=== PATIENT | female | born 1945 | race Caucasian/White ===

== ENCOUNTER 2017-11-19 15:03 | Inpatient (IN) ==
[2017-11-19 16:07] LABS: Basophils % 0.3 % (0.0-0.8); Eosinophils # 0.1 10*3/uL (0.0-0.87); Eosinophils % 1.6 % (0.00-10.9); Hematocrit 45.8 VOL% (35.7-47.0); Hemoglobin 15.7 GM/DL (12.0-16.0); Immature Granulocytes % 0.4 %; Immature Granulocytes Absolute 0.03 #; Lymphocytes # 3.3 10*3/uL (1.4-4.0); Lymphocytes % 41.6 % (21.3-54.2); Mean Corpuscular HGB Conc 34.3 GM/DL (32-36); Mean Corpuscular Hemoglobin 31 PG (27-34); Mean Corpuscular Volume 89.1 FL (87-102); Mean Platelet Volume 10.6 FL (9.6-12.0); Monocytes # 0.8 10*3/uL (0.11-0.8); Monocytes % 10.4 % (1.7-12.7); Neutrophils # 3.7 10*3/uL (1.4-7.4); Neutrophils % 45.7 % (38.7-73.9); Platelet Count 295 T/CUMM (130-400); Red Blood Count 5.14 MC/CUMM (3.8-5.5); Red Cell Distribution Width 12.8 % (9.3-17.3)
[2017-11-19 16:54] LABS: Albumin 4.1 G/DL (3.4-5.0); Bilirubin,Total 1.3 MG/DL (0.2-1.0); CKMB % 1.1 %; Free T4 (Free Thyroxine) 1.01 NG/DL (0.76-1.46); Magnesium 2.8 MG/DL (1.8-2.4); Osmolality,Calculated 300.8 MOS/KG (273-304); Potassium 4.7 MMOL/L (3.5-5.1); Thyroid Stimulating Hormone 14.9 uIU/ml (0.358-3.74); Total Protein 7.1 G/DL (6.4-8.3)
[2017-11-19 16:56] LABS: Troponin I Only 0.05 NG/ML (0.00-0.045)
[2017-11-19] MEDS ORDERED: SODIUM CHLORIDE 0.9% 1,000 ML IV STA ×2 (17:31→18:49)
[2017-11-19 18:37] LABS: Apearance,Urine CLOUDY (Clear); Bacteria,Urine Moderate /HPF (Few); Bilirubin,Urine Negative (Negative); Blood, Urine Moderate mg/dL (Negative); Glucose,Urine (UA) 50 mg/dL (Negative); Hyaline Casts,Urine 36 /LPF (0-3); Ketones,Urine Negative (Negative); Mucus,Urine Occasional /LPF (Occasional); Nitrite,Urine Negative (Negative); Protein,Urine 30 MG/DL; RBC,Urine 2 /HPF (0-4); Squamous Epithelial Cell,Urine Occasional /HPF (0-10); Urine Color Dark yellow (Yellow); Urine Specific Gravity 1.018 (1.001-1.035)
[2017-11-19] MEDS ORDERED: ONDANSETRON 4 MG/2 ML VIAL IV PRN (18:41)
[2017-11-19] MEDS ORDERED: ACETAMINOPHEN 325 MG TABLET PO PRN (18:41)
[2017-11-19] MEDS ORDERED: GLUCAGON 1 MG VIAL IM PRN (18:44)
[2017-11-19] MEDS ORDERED: DEXTROSE 50% 25 GM/50 ML VIAL IV PRN (18:44)
[2017-11-19] MEDS ORDERED: SODIUM BICARBONATE 50 MEQ/50 ML SYRINGE IV ONE (18:45)
[2017-11-19 18:46] LABS: Barbiturates Screen,Urine Negative (Negative); Benzodiazepines Screen,Urine Negative (Negative); Cannabinoid Screen,Urine Negative (Negative); Opiate Screen,Urine Negative (Negative); Phencyclidine Screen,Urine Negative (Negative)
[2017-11-19] MEDS ORDERED: SODIUM BICARBONATE 50 MEQ/50 ML VIAL IV STA (18:49)
[2017-11-19] MEDS ORDERED: LACTULOSE 20 GM/30 ML UDCUP PO PRN (20:23)
[2017-11-19] MEDS: SODIUM CHLORIDE 0.9% 1,000 ML IV SCH (21:22)
[2017-11-19] MEDS: METOPROLOL TARTRATE 25 MG TABLET PO SCH (22:01)
[2017-11-19] MEDS: cefTRIAXone 1,000 MG in SYRINGE 1 EACH IV SCH (22:02)
[2017-11-19] MEDS: ENOXAPARIN 30 MG/0.3 ML SYRINGE SUBCUT SCH (22:02)
[2017-11-19] MEDS: OSELTAMIVIR 75 MG CAPSULE PO SCH (22:02)
[2017-11-19] MEDS: DESITIN 4OZ/NYSTATIN 15 GRAM MIXTURE PASTE TOP SCH (23:30)
[2017-11-19 23:35] LABS: CKMB % 1.2 %; Troponin I Only 0.044 NG/ML (0.00-0.045)
[2017-11-20] MEDS: SODIUM CHLORIDE 0.9% 1,000 ML IV SCH ×5 (01:12→23:19)
[2017-11-20] MEDS: INSULIN REGULAR 100 UNIT/ML SUBCUT SCH ×4 (01:15→17:57)
[2017-11-20 07:37] LABS: Bilirubin,Total 0.7 MG/DL (0.2-1.0); Calcium 7.8 MG/DL (8.5-10.1); Osmolality,Calculated 297.1 MOS/KG (273-304); Potassium 3.6 MMOL/L (3.5-5.1); Total Protein 5.6 G/DL (6.4-8.3)
[2017-11-20 07:38] LABS: Bilirubin,Direct 0.23 MG/DL (0.0-0.20); Bilirubin,Indirect 0.5 MG/DL (0.0-1.0); Bilirubin,Total 0.7 MG/DL (0.2-1.0); Total Protein 5.5 G/DL (6.4-8.3)
[2017-11-20 07:41] LABS: Risk Ratio 8.22; VLDL CHOLESTEROL 56.4 MG/DL
[2017-11-20 07:52] LABS: CKMB % 0.7 %; Troponin I Only 0.043 NG/ML (0.00-0.045)
[2017-11-20 09:46] LABS: Basophils % 0.1 % (0.0-0.8); Hematocrit 43.4 VOL% (35.7-47.0); Hemoglobin 14.9 GM/DL (12.0-16.0); Immature Granulocytes % 0.4 %; Immature Granulocytes Absolute 0.03 #; Lymphocytes # 1.7 10*3/uL (1.4-4.0); Lymphocytes % 25.9 % (21.3-54.2); Mean Corpuscular HGB Conc 34.3 GM/DL (32-36); Mean Corpuscular Hemoglobin 32 PG (27-34); Mean Corpuscular Volume 92.1 FL (87-102); Mean Platelet Volume 13.2 FL (9.6-12.0); Monocytes # 0.5 10*3/uL (0.11-0.8); Monocytes % 7.7 % (1.7-12.7); Neutrophils # 4.4 10*3/uL (1.4-7.4); Neutrophils % 65.9 % (38.7-73.9); Red Blood Count 4.71 MC/CUMM (3.8-5.5); Red Cell Distribution Width 13.7 % (9.3-17.3); White Blood Count 6.7 T/CUMM (4-12)
[2017-11-20] MEDS: LEVOTHYROXINE 25 MCG TABLET PO SCH (10:03)
[2017-11-20] MEDS: DESITIN 4OZ/NYSTATIN 15 GRAM MIXTURE PASTE TOP SCH ×2 (10:03→23:07)
[2017-11-20] MEDS: OSELTAMIVIR 75 MG CAPSULE PO SCH ×2 (10:03→23:05)
[2017-11-20] MEDS: ASPIRIN 325 MG TABLET PO SCH (10:03)
[2017-11-20] MEDS: METOPROLOL TARTRATE 25 MG TABLET PO SCH ×2 (10:03→23:06)
[2017-11-20 10:12] LABS: Platelet Count 80 T/CUMM (130-400)
[2017-11-20] MEDS ORDERED: TUBERCULIN SKIN TEST 0.1 ML SYRINGE INTRADERM ONE (15:02)
[2017-11-20] MEDS: ENOXAPARIN 30 MG/0.3 ML SYRINGE SUBCUT SCH (23:06)
[2017-11-20] MEDS: cefTRIAXone 1,000 MG in SYRINGE 1 EACH IV SCH (23:17)
[2017-11-21] MEDS: INSULIN REGULAR 100 UNIT/ML SUBCUT SCH ×4 (01:23→19:04)
[2017-11-21] MEDS: LEVOTHYROXINE 25 MCG TABLET PO SCH (06:40)
[2017-11-21] MEDS: ASPIRIN 325 MG TABLET PO SCH (09:20)
[2017-11-21] MEDS: OSELTAMIVIR 75 MG CAPSULE PO SCH ×2 (09:20→22:03)
[2017-11-21] MEDS: DESITIN 4OZ/NYSTATIN 15 GRAM MIXTURE PASTE TOP SCH ×2 (09:20→22:05)
[2017-11-21] MEDS: METOPROLOL TARTRATE 25 MG TABLET PO SCH ×2 (09:24→22:03)
[2017-11-21] MEDS ORDERED: FLUCONAZOLE 200 MG TABLET PO ONE (12:28)
[2017-11-21] MEDS: SODIUM CHLORIDE 0.9% 1,000 ML IV SCH ×2 (19:46→19:47)
[2017-11-21] MEDS: ENOXAPARIN 30 MG/0.3 ML SYRINGE SUBCUT SCH (22:03)
[2017-11-21] MEDS: cefTRIAXone 1,000 MG in SYRINGE 1 EACH IV SCH (22:04)
[2017-11-22] MEDS: INSULIN REGULAR 100 UNIT/ML SUBCUT SCH ×4 (01:59→23:52)
[2017-11-22] MEDS: SODIUM CHLORIDE 0.9% 1,000 ML IV SCH (05:42)
[2017-11-22 05:59] LABS: Basophils % 0.4 % (0.0-0.8); Eosinophils % 0.8 % (0.00-10.9); Hematocrit 40.9 VOL% (35.7-47.0); Hemoglobin 13.4 GM/DL (12.0-16.0); Immature Granulocytes % 0.6 %; Immature Granulocytes Absolute 0.03 #; Lymphocytes # 2.1 10*3/uL (1.4-4.0); Lymphocytes % 39.6 % (21.3-54.2); Mean Corpuscular HGB Conc 32.8 GM/DL (32-36); Mean Corpuscular Hemoglobin 31 PG (27-34); Mean Corpuscular Volume 94.7 FL (87-102); Mean Platelet Volume 13.8 FL (9.6-12.0); Monocytes # 0.3 10*3/uL (0.11-0.8); Monocytes % 5.9 % (1.7-12.7); Neutrophils # 2.8 10*3/uL (1.4-7.4); Neutrophils % 52.7 % (38.7-73.9); Red Blood Count 4.32 MC/CUMM (3.8-5.5); Red Cell Distribution Width 13.3 % (9.3-17.3); White Blood Count 5.3 T/CUMM (4-12)
[2017-11-22 06:06] LABS: Platelet Count 86 T/CUMM (130-400)
[2017-11-22] MEDS: LEVOTHYROXINE 25 MCG TABLET PO SCH (06:18)
[2017-11-22 06:21] LABS: Hypochromasia 1+; Ovalocytes Slight
[2017-11-22 06:22] LABS: Giant Platelets Few; Microcytosis Slight; Platelet Estimate Decreased
[2017-11-22 06:38] LABS: Albumin 2.7 G/DL (3.4-5.0); Bilirubin,Total 0.7 MG/DL (0.2-1.0); Calcium 7.5 MG/DL (8.5-10.1); Osmolality,Calculated 286.1 MOS/KG (273-304); Potassium 3.4 MMOL/L (3.5-5.1); Total Protein 5.2 G/DL (6.4-8.3)
[2017-11-22] MEDS: ASPIRIN 325 MG TABLET PO SCH (09:58)
[2017-11-22] MEDS: FLUCONAZOLE 200 MG TABLET PO SCH (09:58)
[2017-11-22] MEDS: OSELTAMIVIR 75 MG CAPSULE PO SCH ×2 (09:58→23:52)
[2017-11-22] MEDS: DESITIN 4OZ/NYSTATIN 15 GRAM MIXTURE PASTE TOP SCH ×2 (09:59→23:53)
[2017-11-22] MEDS: METOPROLOL TARTRATE 25 MG TABLET PO SCH ×2 (10:10→23:52)
[2017-11-22] MEDS: ENOXAPARIN 30 MG/0.3 ML SYRINGE SUBCUT SCH (23:52)
[2017-11-23] MEDS: SODIUM CHLORIDE 0.9% 1,000 ML IV SCH ×4 (00:01→20:37)
[2017-11-23] MEDS: INSULIN REGULAR 100 UNIT/ML SUBCUT SCH ×4 (00:34→17:09)
[2017-11-23] MEDS: cefTRIAXone 1,000 MG in SYRINGE 1 EACH IV SCH (00:58)
[2017-11-23] MEDS ORDERED: ZALEPLON 5 MG CAPSULE PO ONE (01:00)
[2017-11-23] MEDS: LEVOTHYROXINE 25 MCG TABLET PO SCH (06:29)
[2017-11-23] MEDS: ASPIRIN 325 MG TABLET PO SCH (09:31)
[2017-11-23] MEDS: METOPROLOL TARTRATE 25 MG TABLET PO SCH ×2 (09:32→20:37)
[2017-11-23] MEDS: OSELTAMIVIR 75 MG CAPSULE PO SCH ×2 (09:32→20:36)
[2017-11-23] MEDS: DESITIN 4OZ/NYSTATIN 15 GRAM MIXTURE PASTE TOP SCH ×2 (09:32→20:37)
[2017-11-23] MEDS: FLUCONAZOLE 200 MG TABLET PO SCH (09:32)
[2017-11-23] MEDS ORDERED: hydrALAZINE 20 MG/1 ML VIAL IV PRN (14:59)
[2017-11-23] MEDS: ALBUTEROL/IPRATROPIUM 3 ML NEB RESP TX SCH (19:50)
[2017-11-23] MEDS: ENOXAPARIN 30 MG/0.3 ML SYRINGE SUBCUT SCH (20:36)
[2017-11-24] MEDS: cefTRIAXone 1,000 MG in SYRINGE 1 EACH IV SCH (00:16)
[2017-11-24] MEDS: INSULIN REGULAR 100 UNIT/ML SUBCUT SCH ×2 (00:23→06:03)
[2017-11-24] MEDS: ALBUTEROL/IPRATROPIUM 3 ML NEB RESP TX SCH ×4 (00:31→11:32)
[2017-11-24] MEDS: LEVOTHYROXINE 25 MCG TABLET PO SCH (06:03)
[2017-11-24 06:25] LABS: Basophils % 0.4 % (0.0-0.8); Eosinophils # 0.1 10*3/uL (0.0-0.87); Hematocrit 40.5 VOL% (35.7-47.0); Hemoglobin 14.2 GM/DL (12.0-16.0); Immature Granulocytes % 1.6 %; Immature Granulocytes Absolute 0.08 #; Lymphocytes # 1.3 10*3/uL (1.4-4.0); Lymphocytes % 25.4 % (21.3-54.2); Mean Corpuscular HGB Conc 35.1 GM/DL (32-36); Mean Corpuscular Hemoglobin 32 PG (27-34); Mean Platelet Volume 13.6 FL (9.6-12.0); Monocytes # 0.4 10*3/uL (0.11-0.8); Monocytes % 7.8 % (1.7-12.7); Neutrophils # 3.2 10*3/uL (1.4-7.4); Neutrophils % 63.8 % (38.7-73.9); Red Cell Distribution Width 13.2 % (9.3-17.3)
[2017-11-24 06:47] LABS: Platelet Count 146 T/CUMM (130-400)
[2017-11-24 07:03] LABS: Calcium 7.9 MG/DL (8.5-10.1); Potassium 2.8 MMOL/L (3.5-5.1)
[2017-11-24] MEDS: ASPIRIN 325 MG TABLET PO SCH (08:38)
[2017-11-24] MEDS: OSELTAMIVIR 75 MG CAPSULE PO SCH (08:38)
[2017-11-24] MEDS: METOPROLOL TARTRATE 25 MG TABLET PO SCH (08:38)
[2017-11-24] MEDS: POTASSIUM CHLORIDE 20 MEQ/15 ML UDCUP PO PRN ×4 (08:38→11:00)
[2017-11-24] MEDS: FLUCONAZOLE 200 MG TABLET PO SCH (08:38)
[2017-11-24] MEDS: DESITIN 4OZ/NYSTATIN 15 GRAM MIXTURE PASTE TOP SCH (08:39)
[2017-11-24] MEDS: SODIUM CHLORIDE 0.9% 1,000 ML IV SCH (09:46)
[2017-11-24 12:47] VITALS: BP 164/88
== END 2017-11-24 13:02 | DRG 683 ==
LOC: N.ED 15:03 → N.EDINP 18:56 → SUATTDRO 18:56 → N.5E 19:45
PROVIDERS: ADMIT Family Medicine; ATTEND Internal Medicine

== ENCOUNTER 2017-12-16 18:49 | Inpatient (IN) ==
[2017-12-16 20:02] LABS: Basophils % 0.7 % (0.0-0.8); Eosinophils # 0.2 10*3/uL (0.0-0.87); Eosinophils % 3.3 % (0.00-10.9); Hematocrit 38.8 VOL% (35.7-47.0); Hemoglobin 12.6 GM/DL (12.0-16.0); Immature Granulocytes % 0.5 %; Immature Granulocytes Absolute 0.03 #; Lymphocytes # 2.4 10*3/uL (1.4-4.0); Mean Corpuscular HGB Conc 32.5 GM/DL (32-36); Mean Corpuscular Hemoglobin 32 PG (27-34); Mean Corpuscular Volume 97.2 FL (87-102); Mean Platelet Volume 14.5 FL (9.6-12.0); Monocytes # 0.6 10*3/uL (0.11-0.8); Monocytes % 9.5 % (1.7-12.7); Neutrophils # 2.6 10*3/uL (1.4-7.4); Red Blood Count 3.99 MC/CUMM (3.8-5.5); Red Cell Distribution Width 14.4 % (9.3-17.3); White Blood Count 5.8 T/CUMM (4-12)
[2017-12-16 20:08] LABS: Platelet Count 67 T/CUMM (130-400)
[2017-12-16 20:09] LABS: Apearance,Urine CLEAR (Clear); Bilirubin,Urine Negative (Negative); Blood, Urine Negative (Negative); Glucose,Urine (UA) Negative (Negative); Hyaline Casts,Urine 1 /LPF (0-3); Ketones,Urine Negative (Negative); Mucus,Urine Few /LPF (Occasional); Nitrite,Urine Negative (Negative); Protein,Urine Negative; RBC,Urine 1 /HPF (0-4); Squamous Epithelial Cell,Urine Occasional /HPF (0-10); Urine Color Yellow (Yellow); Urine Specific Gravity 1.024 (1.001-1.035); WBC,Urine 1 /HPF (0-6)
[2017-12-16 20:25] LABS: Albumin 3.4 G/DL (3.4-5.0); Bilirubin,Total 0.6 MG/DL (0.2-1.0); Calcium 8.7 MG/DL (8.5-10.1); Potassium 3.9 MMOL/L (3.5-5.1)
[2017-12-16 21:16] LABS: Platelet Estimate Decreased
[2017-12-16] MEDS ORDERED: ONDANSETRON 4 MG/2 ML VIAL IV PRN (21:29)
[2017-12-16] MEDS ORDERED: ACETAMINOPHEN 325 MG TABLET PO PRN (21:29)
[2017-12-16] MEDS ORDERED: GLUCAGON 1 MG VIAL IM PRN (21:29)
[2017-12-16] MEDS ORDERED: DEXTROSE 50% 25 GM/50 ML VIAL IV PRN ×2 (21:29→21:57)
[2017-12-16] MEDS ORDERED: hydrALAZINE 20 MG/1 ML VIAL IV PRN (23:25)
[2017-12-16 23:36] LABS: Hemoglobin 12.4 GM/DL (12.0-16.0)
[2017-12-16] MEDS ORDERED: levETIRAcetam 500 MG/5 ML VIAL IV ONE (23:42)
[2017-12-17] MEDS ORDERED: HYDROCORTISONE 1% CREAM 28 GM TUBE TOP PRN (00:49)
[2017-12-17 01:21] LABS: Apearance,Urine CLEAR (Clear); Bilirubin,Urine Negative (Negative); Blood, Urine Moderate mg/dL (Negative); Glucose,Urine (UA) Negative (Negative); Ketones,Urine Negative (Negative); Mucus,Urine Occasional /LPF (Occasional); Nitrite,Urine Negative (Negative); Protein,Urine Negative; RBC,Urine 1 /HPF (0-4); Squamous Epithelial Cell,Urine Occasional /HPF (0-10); Urine Color Yellow (Yellow); Urine Specific Gravity 1.011 (1.001-1.035); Urine Urobilinogen < 2.0 EU/DL (0.2-1.0); WBC,Urine <1 /HPF (0-6)
[2017-12-17] MEDS: LEVOTHYROXINE 50 MCG TABLET PO SCH (05:34)
[2017-12-17 05:45] LABS: Basophils % 0.8 % (0.0-0.8); Eosinophils # 0.2 10*3/uL (0.0-0.87); Eosinophils % 4.4 % (0.00-10.9); Hematocrit 37.5 VOL% (35.7-47.0); Hemoglobin 12.3 GM/DL (12.0-16.0); Immature Granulocytes % 0.2 %; Immature Granulocytes Absolute 0.01 #; Lymphocytes # 2.3 10*3/uL (1.4-4.0); Lymphocytes % 47.8 % (21.3-54.2); Mean Corpuscular HGB Conc 32.8 GM/DL (32-36); Mean Corpuscular Hemoglobin 32 PG (27-34); Mean Corpuscular Volume 96.4 FL (87-102); Mean Platelet Volume 15.1 FL (9.6-12.0); Monocytes # 0.4 10*3/uL (0.11-0.8); Monocytes % 8.6 % (1.7-12.7); Neutrophils # 1.8 10*3/uL (1.4-7.4); Neutrophils % 38.2 % (38.7-73.9); Platelet Count 59 T/CUMM (130-400); Red Blood Count 3.89 MC/CUMM (3.8-5.5); Red Cell Distribution Width 14.4 % (9.3-17.3); White Blood Count 4.8 T/CUMM (4-12)
[2017-12-17 06:19] LABS: Band Neutrophils 1 % (0-10); Eosinophils 5 % (0-10); Giant Platelets Few; Hypochromasia 1+; Lymphocytes 48 % (20-55); Ovalocytes Slight; Platelet Estimate Decreased; Segmented Neutrophils 37 % (50-85); Total Cells Counted 100
[2017-12-17] MEDS: INSULIN LISPRO 100 UNIT/ML SUBCUT SCH ×4 (07:32→21:36)
[2017-12-17] MEDS ORDERED: MEMANTINE 5 MG TABLET PO SCH (09:00)
[2017-12-17] MEDS ORDERED: GABAPENTIN 100 MG CAPSULE PO SCH (09:00)
[2017-12-17] MEDS: PANTOPRAZOLE 40 MG VIAL IV SCH ×2 (09:09→21:36)
[2017-12-17] MEDS: SERTRALINE 50 MG TABLET PO SCH (09:10)
[2017-12-17] MEDS: KETOCONAZOLE 2% CREAM 30 GM TUBE TOP SCH ×2 (09:10→21:46)
[2017-12-17] MEDS: OLANZapine 2.5 MG TABLET PO SCH ×2 (09:10→21:36)
[2017-12-17] MEDS: cefTRIAXone 2,000 MG in SYRINGE 1 EACH IV SCH (12:08)
[2017-12-17] MEDS ORDERED: diphenhydrAMINE CAP 25 MG CAPSULE PO PRN (18:31)
[2017-12-17] MEDS ORDERED: HALOPERIDOL 5 MG/ML AMP IV PRN (18:34)
[2017-12-17] MEDS: MEMANTINE 10 MG TABLET PO SCH (21:36)
[2017-12-18 06:02] LABS: Basophils % 0.6 % (0.0-0.8); Eosinophils # 0.2 10*3/uL (0.0-0.87); Eosinophils % 3.8 % (0.00-10.9); Hemoglobin 13.1 GM/DL (12.0-16.0); Immature Granulocytes % 0.4 %; Immature Granulocytes Absolute 0.02 #; Lymphocytes # 1.6 10*3/uL (1.4-4.0); Lymphocytes % 32.6 % (21.3-54.2); Mean Corpuscular HGB Conc 34.5 GM/DL (32-36); Mean Corpuscular Hemoglobin 33 PG (27-34); Mean Corpuscular Volume 94.5 FL (87-102); Mean Platelet Volume 14.3 FL (9.6-12.0); Monocytes # 0.4 10*3/uL (0.11-0.8); Monocytes % 8.6 % (1.7-12.7); Neutrophils # 2.6 10*3/uL (1.4-7.4); Platelet Count 59 T/CUMM (130-400); Red Blood Count 4.02 MC/CUMM (3.8-5.5); Red Cell Distribution Width 14.6 % (9.3-17.3); White Blood Count 4.8 T/CUMM (4-12)
[2017-12-18 06:26] LABS: Hypochromasia 1+
[2017-12-18 06:27] LABS: Microcytosis Slight; Platelet Estimate Decreased
[2017-12-18] MEDS: LEVOTHYROXINE 50 MCG TABLET PO SCH (06:42)
[2017-12-18] MEDS: OLANZapine 2.5 MG TABLET PO SCH (09:48)
[2017-12-18] MEDS: SERTRALINE 50 MG TABLET PO SCH (09:48)
[2017-12-18] MEDS: MEMANTINE 10 MG TABLET PO SCH (09:48)
[2017-12-18] MEDS: PANTOPRAZOLE 40 MG VIAL IV SCH (09:48)
[2017-12-18] MEDS: KETOCONAZOLE 2% CREAM 30 GM TUBE TOP SCH (09:48)
[2017-12-18] MEDS: INSULIN LISPRO 100 UNIT/ML SUBCUT SCH ×2 (11:05→13:17)
[2017-12-18 11:24] VITALS: BP 136/58
[2017-12-18] MEDS: cefTRIAXone 2,000 MG in SYRINGE 1 EACH IV SCH (11:50)
== END 2017-12-18 17:10 | disposition home health service (06) | DRG 57 ==
LOC: N.ED 18:49 → EDUNIT# 18:49 → EDBD 18:49 → N.EDINP 21:29 → N.3E 22:09 → N.ICU 23:22 → N.5E 12-17 13:09
PROVIDERS: ADMIT Hospitalist; ATTEND Hospitalist